=== PATIENT | female | born 1970 | race Caucasian/White ===

== ENCOUNTER → 2017-11-24 | Outpatient (CLI) | payer OTHER ==
[~2017-11-24] MED LIST: BETH25 PO; CREON24 PO; DULE200A PO; MAGN400T PO; VITA400C70 PO; VITATAB25 PO
[2017-11-24 09:21] LABS: HEMATOCRIT 39.5 % (35.0-46.0); HEMOGLOBIN 13.9 GM/DL (11.6-15.3); MEAN CELL VOLUME 86.1 FL (80.0-100.0); MEAN CORPUSCULAR HEMOGLOBIN 30.4 PG (27.0-34.0); MEAN CORPUSCULAR HGB CONC 35.3 % (32.0-36.0); MEAN PLATELET VOLUME 8.1 FL (7.0-11.0); PLATELET COUNT 265 TH/MM3 (150-450); RED BLOOD COUNT 4.58 MIL/MM3 (4.00-5.30); RED CELL DISTRIBUTION WIDTH 12.8 % (11.6-17.2); WHITE BLOOD COUNT 4.8 TH/MM3 (4.0-11.0)
[2017-11-24 14:53] LABS: ALBUMIN 3.7 GM/DL (3.4-5.0); AST (GOT) 18 U/L (15-37); BICARBONATE 29.6 MEQ/L (21.0-32.0); BLOOD UREA NITROGEN 7 MG/DL (7-18); CALCIUM 8.7 MG/DL (8.5-10.1); CHLORIDE 109 MEQ/L (98-107); CHOLESTEROL 164 MG/DL (120-200); GLOMERULAR FILTRATION RATE 90 ML/MIN (>89); SODIUM (NA) 142 MEQ/L (136-145); TRIGLYCERIDES 66 MG/DL (42-150)
[2017-11-24 15:27] LABS: ALKALINE PHOSPHATASE 72 U/L (45-117); ALT (GPT) 21 U/L (10-53); C-REACTIVE PROTEIN LESS THAN 0.29 MG/DL (0.00-0.30); CHOLESTEROL/ HDL RATIO 2.61 RATIO; FOLATE 17.9 NG/ML (3.1-17.5); FREE T4 0.91 NG/DL (0.76-1.46); GLUCOSE,FASTING 82 MG/DL (74-99); HDL CHOLESTEROL 62.7 MG/DL (40.0-60.0); LDL CHOLESTEROL 88 MG/DL (0-99); LUTEINIZING HORMONE 5.5 mIU/mL; TOTAL BILIRUBIN ADULT 0.6 MG/DL (0.2-1.0); TOTAL PROTEIN 6.7 GM/DL (6.4-8.2)
[2017-11-26 23:52] LABS: DEHYDROEPIANDROSTERONE SULFATE 56 mcg/dL (19-231)
[2017-11-28 13:25] LABS: ESTRADIOL 70 pg/mL; TESTOSTERONE,TOTAL 23 ng/dL (8-60)
== END ==
LOC: OLAB 08:38
DX: Z00.00 Encounter for general adult medical examination without abnormal findings (principal); N95.1 Menopausal and female climacteric states
CPT/HCPCS: 36415; 80053; 80061; 82306; 82607; 82627; 82670; 82746; 83001; 83002; 83036; 84403; 84439; 84443; 85027; 86140